=== PATIENT | male | born 1985 | race African-American/Black ===

== ENCOUNTER 2023-05-20 18:45 | Inpatient (IN) | payer OTHER, SELFPAY ==
[2023-05-20 19:31] LABS: #Monocytes 0.9 thou/uL (0.11-0.59); #Neutrophils 9.1 thou/uL (1.40-6.50); %Basophils 0.1 % (0.0-1.0); %Lymphocytes 9.1 % (21.0-51.0); %Monocytes 8.1 % (0.0-10.0); %Neutrophils 82.3 % (42.0-75.0); Hemoglobin 14.5 g/dL (14.0-18.0); Mean Corpuscular HGB CONC 30.9 g/dL (32.0-36.0); Mean Corpuscular Hemoglobin 22.7 pg (27.0-31.0); Mean Corpuscular Volume 73.7 fl (78.0-98.0); Mean Platelet Volume 10.1 fL (7.4-10.4); Platelet Count 256 10x3/uL (130-400); RBC Distribution Width 15.1 % (11.5-14.5); Red Blood Cell (RBC) Count 6.38 mill/uL (4.70-6.10); White Blood Cell (WBC) Count 11.1 10x3/uL (4.8-10.8)
[2023-05-20] MEDS ORDERED: Ketorolac Tromethamine 30 MG/ML VIAL ONE (19:42)
[2023-05-20] MEDS ORDERED: Dexamethasone 10 MG/ML VIAL ONE (19:42)
[2023-05-20 19:53] LABS: CellaVision Operator ID LAB.KB; Hypochromia SLIGHT = 6-15 cells HPF (0-5); Microcytosis SLIGHT = 6-15 cells HPF (0-5); Platelet Adequacy Comment Platelets Normal; Polychromasia SLIGHT = 2-3 cells HPF (0-2); Target Cells SLIGHT = 2-5 cells HPF (0-1)
[2023-05-20] MEDS ORDERED: Ampicillin/Sulbactam 3 GM in Sodium Chloride 0.9% 100 ML IVPB SCH (20:00)
[2023-05-20 20:02] LABS: ALT (SGPT) 13 U/L (8-55); AST (SGOT) 14 U/L (5-34); Albumin 4.1 g/dL (3.5-5.0); Alkaline Phosphatase 75 U/L (40-110); Anion Gap 15 mmol/L (10-20); BUN (Urea Nitrogen) 13 mg/dL (8.9-20.6); Bilirubin, Total 1.1 mg/dL (0.2-1.2); Calc. Creatinine Clearance 0 mL/min (70-130); Calcium 9.4 mg/dL (7.8-10.44); Carbon Dioxide 24 mmol/L (22-29); Chloride 105 mmol/L (98-107); Estimated GFR 84; Globulin 3.5 g/dL (2.4-3.5); Glucose 112 mg/dL (70-105); Potassium 4.4 mmol/L (3.5-5.1); Protein, Total 7.6 g/dL (6.0-8.3); Sodium 140 mmol/L (136-145)
[2023-05-20] MEDS ORDERED: Ondansetron PF 4 MG/2 ML Vial ONE (20:19)
[2023-05-20] MEDS ORDERED: Glycopyrrolate 0.2 MG/ML 5 ML SYRINGE ONE (20:19)
[2023-05-20] MEDS ORDERED: Rocuronium Bromide 10 MG/ML (10ML VIAL) ONE (20:19)
[2023-05-20] MEDS ORDERED: Esmolol 100 MG/10 ML VIAL ONE (20:19)
[2023-05-20] MEDS ORDERED: Dexamethasone 20 MG/5 ML VIAL ONE (20:19)
[2023-05-20] MEDS ORDERED: Metoclopramide HCl 10 MG/2 ML VIAL ONE (20:19)
[2023-05-20] MEDS ORDERED: Midazolam HCl 2 mg/2 ml Vial ONE (20:20)
[2023-05-20] MEDS ORDERED: fentaNYL 50 mcg/mL 1 mL Vial ONE (20:20)
[2023-05-20] MEDS ORDERED: Oxymetazoline HCl 0.05% (30 ML BOT) ONE (20:21)
[2023-05-20] MEDS ORDERED: SUGAMMADEX SODIUM 200 MG/2 ML VIAL ONE (20:21)
[2023-05-20] MEDS ORDERED: Ketamine 50 MG/ML (10ML VIAL) ONE (20:21)
[2023-05-20] MEDS ORDERED: Famotidine/PF 20 mg/2ml Vial ONE (20:21)
[2023-05-20] MEDS ORDERED: Chlorhexidine Gluconate 15 ML UDCUP SSP ONE (20:22)
[2023-05-20] MEDS ORDERED: Vancomycin 1 GM VIAL ONE (20:25)
[2023-05-20] MEDS ORDERED: Gentamicin 80 MG/2 ML VIAL ONE (20:25)
[2023-05-20] MEDS ORDERED: EPINEPHrine 1 MG/ML AMP ONE (21:01)
[2023-05-20] MEDS ORDERED: Bupivacaine 0.25% HCL 30 ML VIAL ONE (21:01)
[2023-05-20] MEDS ORDERED: Meperidine HCl/PF 25 MG/ML VIAL SLOW IVP PRN (21:25)
[2023-05-20] MEDS ORDERED: Promethazine HCl 25 MG/ML VIAL IM PRN (21:25)
[2023-05-20] MEDS ORDERED: Ondansetron HCl/PF 4 MG/2 ML Vial IVP PRN (21:25)
[2023-05-20] MEDS ORDERED: Morphine 2 MG/ML VIAL SLOW IVP PRN (22:17)
[2023-05-20] MEDS ORDERED: Ondansetron PF 4 MG/2 ML Vial IVP PRN (22:18)
[2023-05-21] MEDS: D5 0.9% NS w/ 20 mEq KCl 1,000 ML IV SCH ×3 (00:25→20:43)
[2023-05-21] MEDS: Ibuprofen 800 MG TAB PO SCH ×5 (00:33→23:39)
[2023-05-21 00:51] VITALS: BMI 24.4
[2023-05-21] MEDS: Ampicillin/Sulbactam 3 GM in Sodium Chloride 0.9% 100 ML IVPB SCH ×4 (03:00→20:37)
[2023-05-21 06:00] LABS: #Monocytes 0.5 thou/uL (0.11-0.59); %Basophils 0.1 % (0.0-1.0); %Lymphocytes 5.9 % (21.0-51.0); %Monocytes 4.7 % (0.0-10.0); %Neutrophils 88.8 % (42.0-75.0); Mean Corpuscular HGB CONC 30.5 g/dL (32.0-36.0); Mean Corpuscular Hemoglobin 22.5 pg (27.0-31.0); Mean Corpuscular Volume 73.6 fl (78.0-98.0); Mean Platelet Volume 10.1 fL (7.4-10.4); Platelet Count 234 10x3/uL (130-400); RBC Distribution Width 14.7 % (11.5-14.5); Red Blood Cell (RBC) Count 5.79 mill/uL (4.70-6.10); White Blood Cell (WBC) Count 11.3 10x3/uL (4.8-10.8)
[2023-05-21] MEDS: Chlorhexidine Gluconate 15 ML UDCUP SSP SCH ×3 (09:19→20:37)
[2023-05-21] MEDS: HYDROcodone/Acetaminophen 5/325 mg Tablet PO PRN (18:30)
[2023-05-22] MEDS: Ampicillin/Sulbactam 3 GM in Sodium Chloride 0.9% 100 ML IVPB SCH ×4 (02:19→21:54)
[2023-05-22] MEDS: Ibuprofen 800 MG TAB PO SCH ×4 (06:26→23:31)
[2023-05-22 06:41] LABS: #Monocytes 0.7 thou/uL (0.11-0.59); #Neutrophils 5.4 thou/uL (1.40-6.50); %Basophils 0.1 % (0.0-1.0); %Eosinophils 0.2 % (0.0-10.0); %Lymphocytes 23.7 % (21.0-51.0); %Monocytes 8.1 % (0.0-10.0); %Neutrophils 67.3 % (42.0-75.0); Hemoglobin 12.9 g/dL (14.0-18.0); Mean Corpuscular Hemoglobin 23.2 pg (27.0-31.0); Mean Platelet Volume 9.9 fL (7.4-10.4); Platelet Count 243 10x3/uL (130-400); RBC Distribution Width 14.5 % (11.5-14.5); Red Blood Cell (RBC) Count 5.56 mill/uL (4.70-6.10); White Blood Cell (WBC) Count 8.1 10x3/uL (4.8-10.8)
[2023-05-22 06:52] LABS: Mean Corpuscular Volume 72.5 fl (78.0-98.0)
[2023-05-22] MEDS: Chlorhexidine Gluconate 15 ML UDCUP SSP SCH ×3 (10:05→21:54)
[2023-05-22] MEDS: HYDROcodone/Acetaminophen 5/325 mg Tablet PO PRN (10:15)
[2023-05-22] MEDS: D5 0.9% NS w/ 20 mEq KCl 1,000 ML IV SCH ×2 (11:46→23:32)
[2023-05-22] MEDS: Dexamethasone 4 mg/ml Vial SLOW IVP SCH ×2 (17:44→23:31)
[2023-05-23] MEDS: Ampicillin/Sulbactam 3 GM in Sodium Chloride 0.9% 100 ML IVPB SCH ×4 (03:36→20:03)
[2023-05-23] MEDS: Ibuprofen 800 MG TAB PO SCH ×3 (05:46→17:41)
[2023-05-23] MEDS: Dexamethasone 4 mg/ml Vial SLOW IVP SCH (05:46)
[2023-05-23 06:49] LABS: #Monocytes 0.3 thou/uL (0.11-0.59); #Neutrophils 4.6 thou/uL (1.40-6.50); %Lymphocytes 15.5 % (21.0-51.0); %Monocytes 5.2 % (0.0-10.0); %Neutrophils 78.8 % (42.0-75.0); Hemoglobin 14.1 g/dL (14.0-18.0); Mean Corpuscular HGB CONC 31.2 g/dL (32.0-36.0); Mean Corpuscular Hemoglobin 22.9 pg (27.0-31.0); Mean Platelet Volume 9.7 fL (7.4-10.4); Platelet Count 292 10x3/uL (130-400); RBC Distribution Width 14.4 % (11.5-14.5); Red Blood Cell (RBC) Count 6.15 mill/uL (4.70-6.10); White Blood Cell (WBC) Count 5.8 10x3/uL (4.8-10.8)
[2023-05-23 07:05] LABS: Mean Corpuscular Volume 73.5 fl (78.0-98.0)
[2023-05-23] MEDS: Chlorhexidine Gluconate 15 ML UDCUP SSP SCH ×3 (09:01→20:03)
[2023-05-23] MEDS: D5 0.9% NS w/ 20 mEq KCl 1,000 ML IV SCH (12:11)
[2023-05-24] MEDS: Ibuprofen 800 MG TAB PO SCH ×2 (00:03→06:16)
[2023-05-24] MEDS: Ampicillin/Sulbactam 3 GM in Sodium Chloride 0.9% 100 ML IVPB SCH ×2 (03:15→09:08)
[2023-05-24 08:35] VITALS: BP 122/65; TEMP 98
[2023-05-24] MEDS: Chlorhexidine Gluconate 15 ML UDCUP SSP SCH (09:08)
== END 2023-05-24 12:59 | disposition home or self-care (01) | DRG 144 ==
LOC: ERS 18:45 → OBSVTOIN 22:03 → T4-A 22:03
PROVIDERS: ADMIT Dentist Oral and Maxillofacial Surgery; ATTEND Dentist Oral and Maxillofacial Surgery
PROC: 0CDWXZ0 Extraction of Upper Tooth, Single, External Approach (ICD-10-PCS; principal; 2023-05-20)
PROC: 0W960ZZ Drainage of Neck, Open Approach (ICD-10-PCS; 2023-05-20)
PROC: 0W930ZZ Drainage of Oral Cavity and Throat, Open Approach (ICD-10-PCS; 2023-05-20)
PROC: 0CDXXZ0 Extraction of Lower Tooth, Single, External Approach (ICD-10-PCS; 2023-05-20)
DX: K12.2 Cellulitis and abscess of mouth (principal); J39.0 Retropharyngeal and parapharyngeal abscess; K04.7 Periapical abscess without sinus; K04.1 Necrosis of pulp; K02.9 Dental caries, unspecified; F41.9 Anxiety disorder, unspecified; F32.9 Major depressive disorder, single episode, unspecified; Z79.899 Other long term (current) drug therapy
CPT/HCPCS: 36415; 80053; 83605; 85025; 87040; 87070; 87205; 96374; 96375; J0171; J0295; J1100; J1580; J1885; J2250; J2405; J2765; J3010; J3370; J3480; J3490; S0020; S0028